=== PATIENT | male | born 1995 | race Caucasian/White ===

== ENCOUNTER → 2019-07-28 15:45 | Outpatient (CLI) | payer BC, SELFPAY | PROVIDERS: PCP Physician Assistant; Visit Provider Physician Assistant | DX: G47.33 Obstructive sleep apnea (adult) (pediatric) (principal); G47.10 Hypersomnia, unspecified; R06.83 Snoring | CPT/HCPCS: G0399 ==

== ENCOUNTER 2020-09-18 09:06 | Emergency (ER) | payer BC, SELFPAY ==
[2020-09-18 09:06] VITALS: BP 144/96; PULSE 86; RESP 20; TEMP 36.8; O2SAT 100; BMI 40.6
--- NOTE | 2020-09-18 09:30 | HMH.EDUTC ---
[facility] Disposition Clinical Impression: Exposure to COVID-19 virus Disposition: Home, Self-Care Condition on Discharge: Good Instructions: DI for Nasal Congestion, DI for COVID-19 (Suspected or Confirmed ), Coronavirus Disease 2019, Preventing the Spread of Coronavirus Discharge Instructions Additional Instructions: *Monitor Temp, Over the counter Motrin or Tylenol as directed/as needed Tylenol every 4 hours and Motrin every 6 hours (as long as your family doctor has told you that you can take it) for fever or pain. and straight to ER if unable to lower temp less than 101.0 after medication given Take allergy medication as prescribed and make sure you are getting adequate Vit C and D Follow up IMMEDIATELY for new or worsening symptoms or no Noticeable improvement over the next 48-72 hours. 911 for difficulty breathing or swallowing You were tested for today for COVID19 your test result should be back in the next 24-48 hours, you may call to the [facility] to see if your test results are back in the next 48 hours [phone] [facility] hours are 9am-9pm You was given a handout with instructions for Self Quarantine and Self isolation for while you wait on test results and what to do if they are positive If you are positive the Health Dept will be contacting you also Referrals: PCP,No [Primary Care Provider] - As needed Forms: Work/School Release Time of Disposition: 09:34 Medical Decision Making - Shravan Inquiry Pt receiving controlled substance: No Shravan was queried for this patient: No Vital Signs: 09/18/20 09:06 Temperature 98.2 F Temperature Source Oral Pulse Rate [Right] 86 Respiratory Rate 20 Blood Pressure [Right Arm] 144/96 H Blood Pressure Mean [Right Arm] 112 02 Sat by Pulse Oximetry 100 Orders (Tests/Meds): ORDERS Category Date Time Status Covid-19 Nasal PCR Sendout P&C Stat Lab 09/18/20 09:08 Ordered [facility] HPI - General Stated complaint: covid test Time Seen by Provider: 09/18/20 09:30 Description of Symptoms (Recalled from Triage Doc. by RN): pt request covid test pt c/o head congestion since wednesday HEENT Symptoms (Recalled from RN notes): No Resp Symptoms (Recalled from RN notes): Yes Skin Symptoms (Recalled from RN notes): No MS Symptoms (Recalled from RN notes): No Functional Status (Recalled from RN notes): wnl - History of Present Illness Provider Complaint: Patient state that he was recently around someone that has recently tested positive for COVID States that he has been having some sinus congestion but no fever or sore throat States that started having runny nose over the weekend and still having clear drainage - Related Data Home Medications Medication Instructions Recorded Confirmed loratadine 10 mg tablet 10 mg PO DAILY 08/22/19 08/22/19 Allergies Allergy/AdvReac Type Severity Reaction Status Date / Time No Known Allergies Allergy Verified 08/22/19 15:57 - Worker's Comp Is this a Worker's Comp case?: No Is this an [employer] Worker's Comp?: No Is this a Deric Worker's Comp?: No [facility] History - Hepatitis A Screen Drug use history?: No High risk sexual behaviors?: No History of sexually transmitted infection?: No Currently employed?: No Childcare worker?: No Do you have indoor plumbing?: Yes Do you have electricity?: Yes Attestation statement:: This patient has been screened for Hepatitis A risk factors. I have reviewed the patient's past medical history: Yes Other Surgeries: Yes: No Previous Surgery - Social History Smoking Status: Never smoker Alcohol Intake: current Alcohol Intake Frequency:: holidays/special occasions only Substance Use Type: denies use Occupational Status: employed Housing: house Household Members: spouse Family Hx:: Hypertension, Hyperlipidemia, Heart Attack ROS Obtained: Yes All systems reviewed & no additional complaints, Yes Systems reviewed as appropriate & no additional complaints - Constitutional Constitutional: Repor
[2020-09-18 09:37] VITALS: BP 144/96; PULSE 86; RESP 20; TEMP 36.8; O2SAT 100
[2020-09-19 10:40] LABS: Covid-19 Nasal PCR Sendout P&C POSITIVE
--- NOTE | 2020-09-19 12:04 | PC.NURSE ---
PATIENT NOTIFIED OF POSITIVE COVID TEST AT THIS TIME
== END 2020-09-18 09:43 | disposition home or self-care (01) ==
PROVIDERS: Emergency Provider Nurse Practitioner
DX: U07.1 COVID-19 (principal)
CPT/HCPCS: 99202; G0463; U0004

== ENCOUNTER → 2020-09-25 16:15 | Outpatient (CLI) | payer BC, SELFPAY ==
--- NOTE | 2020-09-25 16:29 | XR_ITS ---
PROCEDURE: XR CHEST PORTABLE CLINICAL HISTORY: COVID OUTPATIENT Cough, positive Covid19 COMPARISON: No exams were available for comparison FINDINGS: The cardiomediastinal silhouette and pulmonary vascularity are within normal limits. Patchy ground-glass attenuation noted in the right perihilar region and left lower lobe suspicious for Covid19 pneumonia. No acute bony abnormalities. IMPRESSION: Bilateral ground-glass infiltrates suspicious for Covid19 pneumonia Dictated by: Korey Juarez MD 09/26/2020 05:48 Korey Juarez MD in OV 09/26/2020 05:48
[2020-09-25 17:04] LABS: Basophils % 0.7 % (0.1-2.0); Eosinophils # 0.1 K/mm3 (0.0-0.4); Hematocrit 43.6 % (42.0-52.0); Hemoglobin 15.3 g/dL (14.1-18.0); Lymphocytes # 1.3 K/mm3 (0.7-4.5); Mean Corpuscular HGB Conc 35.2 g/dL (31.8-35.4); Mean Corpuscular Hemoglobin 28.1 pg (27.0-31.2); Mean Corpuscular Volume 79.9 fl (80-94); Mean Platelet Volume 7.2 fl (7.4-10.4); Monocytes # 0.3 K/mm3 (0.1-1.0); Monocytes % 4.7 % (1.7-9.3); Neutrophils # 3.6 K/mm3 (1.8-7.8); Neutrophils % 67.5 % (37.0-80.0); Platelet Count 254 K/mm3 (142-424); Red Blood Count 5.46 M/mm3 (4.60-6.20); Red Cell Distribution Width 13.6 % (11.5-17.5); White Blood Count 5.4 K/mm3 (4.8-10.8)
[2020-09-27 09:55] LABS: Covid-19 Nasal PCR Sendout P&C POSITIVE
== END ==
PROVIDERS: PCP Nurse Practitioner Family; Visit Provider Nurse Practitioner Family
DX: U07.1 COVID-19 (principal)
CPT/HCPCS: 36415; 71045; 85025; U0004

== ENCOUNTER 2020-09-29 18:32 | Emergency (ER) | payer BC, SELFPAY ==
[2020-09-29 18:34] VITALS: BP 173/114; PULSE 118; RESP 20; TEMP 36.6; O2SAT 98; BMI 40.6
--- NOTE | 2020-09-29 18:45 | XR_ITS ---
PROCEDURE: XR CHEST PORTABLE CLINICAL HISTORY: SOB; +COVID COMPARISON: CR XR CHEST PORTABLE from 09/25/2020 FINDINGS: The cardiomediastinal silhouette and pulmonary vascularity are within normal limits. There are low lung volumes. There are mild atelectatic changes in the right lung base. Patchy density present in the left lower lobe and may be due to atelectasis and/or infiltrate probably unchanged. IMPRESSION: Hypoexpansion with atelectasis and/or infiltrate in the left lower lobe Dictated by: Korey Juarez MD 09/30/2020 06:24 Korey Juarez MD in OV 09/30/2020 06:24
[2020-09-29 19:11] LABS: ABG Base Excess -3.3 mmol/L (-2.4-2.3); ABG HCO3 20.7 mmhg (22.0-26.0); ABG Oxygen Saturation 98 % (90-100); ABG PCO2 30.5 mmhg (35.0-45.0); ABG PH 7.45 mmol/L (7.35-7.45); ABG PO2 96.1 mmhg (80-100); ABG TCO2 21.7 mmhg (23-27); Allen's Test Y; Oxygen R/A %; Source R/R
--- NOTE | 2020-09-29 19:16 | HMH.EDSOB ---
ED Disposition Clinical Impression: COVID-19 Disposition: Home, Self-Care Condition on Discharge: Good Referrals: Vane Mccurdy PA [Primary Care Provider] - - Critical Care Critical Care Time: No Attestation: On 09/29/20, the high probability of a clinically significant, sudden or life threatening deterioration of the following system(s) required my full and direct attention, intervention and personal management. The time I documented below is in addition to time spent performing reported procedures but includes the following listed in this critical care notation. Medical Decision Making - Medical Records Medical records reviewed: Yes: I reviewed the patient's medical records. - Shravan Inquiry Pt receiving controlled substance: No Vital Signs: 09/29/20 18:34 Temperature 97.8 F Temperature Source Oral Pulse Rate [Left Radial] 118 H Respiratory Rate 20 Blood Pressure [Right Arm] 173/114 H Blood Pressure Mean [Right Arm] 133 Blood Pressure Source [Right Arm] Automatic Cuff Blood Pressure Position [Right Arm] Sitting 02 Sat by Pulse Oximetry 98 Oxygen Delivery Method Room Air - Lab Data Lab results reviewed: Yes: I reviewed the patient's lab results. Lab Results 09/29/20 19:09: Specimen Source R/r, O2 % R/a, ABG pH 7.45, ABG pCO2 30.5 L, ABG pO2 96.1, ABG HCO3 20.7 L, ABG Total CO2 21.7 L, ABG O2 Saturation 98, ABG Base Excess -3.3 L, Korey Test Y Orders (Tests/Meds): ORDERS Category Date Time Status XR chest portable Stat Exams 09/29/20 18:45 Taken Basic Metabolic Panel Stat Lab 09/29/20 18:46 Ordered Complete Blood Count Auto Diff Stat Lab 09/29/20 18:45 Ordered Arterial Blood Gas Stat RT 09/29/20 18:45 Ordered - Radiology Data #1 Image(s): Chest Image Reviewed: Yes I reviewed the patient's radiology results Preliminary Findings: Normal/NAD Resp/SOB HPI - General Chief Complaint: Shortness of Breath/Dyspnea Stated Complaint: covid pos , weakness,double pnuemon Time Seen by Provider: 09/29/20 18:35 Mode of Arrival: Ambulatory Limitations: No Limitations Description of Symptoms (Recalled from ER Triage Doc. by RN): pt states that he has tested positive for covid a week and half ago and the last few days he has been feeling soa more in the morning. He was given the covid cocktail but he isnt sure if the PNA is getting better or worse - History of Present Illness This is a 24-year-old male that presents with progressive shortness of breath. Patient tested positive for Covid approximately 1-1/2 weeks ago. Patient reported he had bilateral infiltrates and was treated with antibiotics and steroids. Patient reports shortness of breath worse in the morning. Patient denies significant shortness of breath at this time. No chest pain orthopnea. No further fever or chills. - Related Data Home Medications Medication Instructions Recorded Confirmed loratadine 10 mg tablet 10 mg PO DAILY 08/22/19 08/22/19 Allergies Allergy/AdvReac Type Severity Reaction Status Date / Time No Known Allergies Allergy Verified 08/22/19 15:57 [facility] History - Hepatitis A Screen Drug use history?: No High risk sexual behaviors?: No History of sexually transmitted infection?: No Currently employed?: No Childcare worker?: No Do you have indoor plumbing?: Yes Do you have electricity?: Yes Attestation statement:: This patient has been screened for Hepatitis A risk factors. I have reviewed the patient's past medical history: Yes Other Surgeries: Yes: No Previous Surgery - Social History Smoking Status: Never smoker Alcohol Intake: current Alcohol Intake Frequency:: holidays/special occasions only Substance Use Type: denies use Occupational Status: employed Housing: house Household Members: spouse Family Hx:: Hypertension, Hyperlipidemia, Heart Attack ROS Obtained: Yes All systems reviewed & no additional complaints Physical Exam - General General appear
[2020-09-29 19:34] VITALS: BP 139/94; PULSE 103; RESP 16; TEMP 36.6; O2SAT 98
== END 2020-09-29 19:36 | disposition home or self-care (01) ==
PROVIDERS: Emergency Provider Emergency Medicine; PCP Physician Assistant
DX: U07.1 COVID-19 (principal)
CPT/HCPCS: 71045; 82803; 96372; 99282

== ENCOUNTER → 2025-03-12 07:05 | Outpatient (CLI) | payer BC, SELFPAY ==
--- OUTSIDE RECORDS SUMMARY | 2025-02-02 10:15 | XMS_ITS ---
[facility] [address] [place] [id number] Care Team Providers Care Care Taker Name Role Phone Dez Limon Primary Care Provider Allergies No Known Allergies Results Component Value Reference Range Notes CBC Venipuncture (in house) Reviewed date:02/06/2025 10:23:12 AM Interpretation: Performing Lab: Notes/Report: wbc 10.5 3.5 - 10 lymph 23.5% 15 - 50 mid 6.3% 2 - 15 gran 70.2% 35 - 80 rbc 5.29 3.5 - 5.5 hgb 14.5 11.5 - 16.5 hct 42.8 35 - 55 mcv 80.9 75 - 100 mch 27.4 25 - 35 mchc 33.9 31 - 38 platlet 289 100 - 400 P-Basic Metabolic Panel (BMP ) Reviewed date:02/05/2025 02:18:57 PM Interpretation:Normal Performing Lab: Notes/Report: Test performed by [facility], [address] , [address], [place] [address] Ricardo Welsh MD, Perinatal Technician CLIA: [id number] Sodium 141 135-145 mmol/L Potassium 4.4 3.5-5.3 mmol/L Chloride 100 97-108 mmol/L CO2 26 22-32 mmol/L Glucose 89 65-99 mg/dL BUN 16 6-20 mg/dL Creatinine 0.83 0.70-1.30 mg/dL Calcium 9.6 8.6-10.4 mg/dL eGFR by Creatinine 121 >59 mL/min/1.73m2 P-Lipid Panel Reviewed date:02/05/2025 02:18:57 PM Interpretation:chol 230, trigs 240, hdl 34, chol/hdl 6.76, non-hdl 196, ldl 148 Performing Lab: Notes/Report: Test performed by [facility], [address] , [address], [place] [address] Ricardo Welsh MD, Perinatal Technician CLIA: [id number] Cholesterol 230 <200 mg/dL Triglycerides 240 <150 mg/dL HDL Cholesterol 34 >39 mg/dL Cholesterol / HDL Ratio 6.76 0.00-4.99 Ratio Non-HDL Cholesterol 196 <130 mg/dL LDL Cholesterol (Calculation) 148 <130 mg/dL LDL Cholesterol Levels* Less than 100 mg/dL Optimal 100 to 129 mg/dL Near Optimal/ Above Optimal 130 to 159 mg/dL Borderline High 160 to 189 mg/dL High 190 mg/dL and above Very High * Categories as recommended by the 2004 ATPIII guidelines LDL/HDL Ratio 4.4 <3.3 Ratio LDL Cholesterol Patient History Test Date: 02/02/2025 LDL Results: 148 Units: mg/dL % Change: - P-TSH reflex to FT4 Reviewed date:02/05/2025 02:18:58 PM Interpretation:Normal Performing Lab: Notes/Report: Test performed by [employer] [facility] , [address], [place] [address] Ricardo Welsh MD, Perinatal Technician IA: [id number] TSH reflex to FT4 2.70 0.43-5.25 mU/L REASON FOR VISIT general check up Social History Tobacco Use: Social History Observation Description Date Details (start date - stop date) Never Smoker NA - NA CURRENT TOBACCO USE: Question Answer Notes Are you a: never smoker Problems Problem Type SNOMED Code ICD Code Onset Dates Problem Status W/U Status Risk Notes Problem Morbid obesity (260093540) Morbid obesity (E66.01) Active confirmed Problem Allergic rhinitis (36237332) Allergic rhinitis, unspecified seasonality, unspecified trigger (J30.9) Active confirmed Vital Signs Blood pressure systolic 140 mm Hg 02/03/20 25 Blood pressure diastolic 96 mm Hg 025 Heart Rate 108 /min 02/02/2025 Height 69 in 02/02/2025 Weight 306 lbs 02/02/2025 BMI 45.18 kg/m2 02/02/2025 Encounters Encounter Location Date Provider Diagnosis [facility] [address] [place], [place] [id number] 02/02/2025 Dez Sumner Snoring R06.83 ; Elevated blood pressure reading R03.0 ; Morbid obesity E66.01 ; Screening, lipid Z13.220 and Allergic rhinitis, unspecified seasonality, unspecified trigger J30.9 Assessments Encounter Date Diagnosis (ICD Code) Assessment Notes Treatment Notes Treatment Clinical Notes Section Notes 02/02/2025 Snoring (ICD-10 - R06.83) 02/02/2025 Elevated blood pressure reading (ICD-10 - R03.0) 02/02/2025 Morbid obesity (ICD-10 - E66.01) 02/02/2025 Screening, lipid (ICD-10 - Z13.220) 02/02/2025 Allergic rhinitis, unspecified seasonality, unspecified trigger (ICD-10 - J30.9) OTC antihistamine of choice Plan Of Treatment Treatment Notes Assessment Notes Allergic rhinitis, unspecifi ed seasonality, unspecified trigger OTC antihistamine of choice Pending Test Test Name Order Date sleep study 02/02/2025 Next Appt Details Follow Up: 3 or 4 Weeks, Thompson son: Provider Name:Dez Riley ry, 03/16/2025 10:15:00 AM, [address], [address], [place], [id number], Progress Notes * GRACE LUNADOB:[birth year] (29 yo M)Acc No.[id number]:02/02/2025 Progress Notes Patient: GRACE OSBORNE Provider: Florian Limon M.D. :1995 A ge:29 Y S ex:Male Date:02/02/2025 Address:[facility] [place], [facility] Subjective: * Chief Complaints: * 1 . General check up. * HPI: H PI: 29 year old male presents with c/o Patient is here today for?Pt here to talk about possible sleep apnea. Pt states that his complains about his snoring?. * ROS: A LLERGY: Runny nose y es, c lear discharge. D ERMATOLOGY: no R sofya. n o H dmitry. G ASTROENTEROLOGY: no N ausea. n o V omiting. U ROLOGY: no D ifficulty urinating. n o B lood in urine. * Medical History: A llergic rhinitis, Obesity. * Surgical History: D enies Past Surgical History. * Hospitalization/Major Diagno stic Procedure: O D'ed on allergy medication 2010. * Family History: F ather: alive, diagnosed with Hypertension. M other: alive, diagnosed with Hypertension.?Siblings: alive. * Social History: C URRENT TOBACCO USE A re you a: n ever smoker. * Medications: D iscontinued ROBITUSSIN COUGH & COLD CF , Discontinued ALBUTEROL HFA INHALER 200 METERED DOSES/ 8.5GM 2 INHALATIONS QID AND Q2H PRN , Discontinued Cefdinir 300 MG Capsule 1 cap(s) orally every 12 hours , Discontinued Promethazine-DM 6.25-15 MG/5ML Syrup 5 ml orally every 6 hours prn , Medication List reviewed and reconciled with the patient * Allergies: N .K.D.A. Objective: * Vitals: W t: 306, Temp: 97.9, BP: 140/96, HR: 108, Nurse: luis, Ht: 69, BMI:45.18. * Examination: G eneral Examination: General Appearance: N AD. O ral cavity: n o lesions, mucosa moist and WNL, no erythema. H eart: R SR. L ungs: c lear to auscultation.?Neurologic Exam: I ntact, gait normal. S kin: n ormal, no rash. P eripheral pulses: n ormal (2+) bilaterally. E xtremities: n o leg edema. Assessment: * Assessment: 1. S noring - R06.83 (Primary) 2 . E levated blood pressure reading - R03.0? 3. M orbid obesity - E66.01 4 . S creening, lipid - Z13.220 5 . A llergic rhinitis, unspecified seasonality, unspecified trigger - J30.9? Plan: * Treatment: 2.?Elevated blood pressure reading?LAB: P-Basic Metabolic Panel (BMP) (Collection Date & Time - 02/02/2025 01:31 PM)?Normal* Value Reference Range B UN 16 6-20 - mg/dL * C alcium 9.6 8.6-10.4 - mg/dL * C hloride 100 97-108 - mmol/L * C O2 26 22-32 - mmol/L * C reatinine 0.83 0.70-1.30 - mg/dL * G lucose 89 65-99 - mg/dL * P otassium 4.4 3.5-5.3 - mmol/L * S odium 141 135-145 - mmol/L * e GFR by Creatinine 121 >59 - mL/min/1.73m2 * Dana Figueroa 02/05/2025 02:18 :49 PM EDT > See phone encounter ?LAB: P-TSH reflex to FT4 (Collection Date & Time - 02/02/2025 01:31 PM)? Normal* Value Reference Range T SH reflex to FT4 2.70 0.43-5.25 - mU/L * Dana Figueroa 02/05/2025 02:18 :49 PM EDT > See phone encounter ?LAB: CBC Venipuncture (in house) (Collection Date & Time - 02/02/2025)* Value Reference Range w bc 10.5 3.5 - 10 * l ymph 23.5% 15 - 50 * m id 6.3% 2 - 15 * g ran 70.2% 35 - 80 * r bc 5.29 3.5 - 5.5 * h gb 14.5 11.5 - 16.5 * h ct 42.8 35 - 55 * m cv 80.9 75 - 100 * m ch 27.4 25 - 35 * m chc 33.9 31 - 38 * p latlet 289 100 - 400 * Yaa Wiggins 02/05/2025 05:00:2 6 PM EDT >Nadia Mena 02/06/2025 10:23:04 AM EDT > see TE ?Imaging: sleep study* Sandi Philip 02/05/2025 10:33 :59 AM EDT > faxed to [facility] March 3.?Morbid obesity?LAB: P-TSH reflex to FT4 (Collection Date & Time - 02/02/2025 01:31 PM)? Normal* Value Reference Range T SH reflex to FT4 2.70 0.43-5.25 - mU/L * Dana Figueroa 02/05/2025 02:18 :49 PM EDT > See phone encounter ?Imaging: sleep study* Sandi Philip 02/05/2025 10:33 :59 AM EDT > faxed to [facility] March 4.?Screening, lipid?LAB: P-Lipid Panel (Collection Date & Time - 02/02/2025 01:31 PM)?chol 230, trigs 240, hdl 34, chol/hdl 6.76, non-hdl 196, ldl 148* Value Reference Range C holesterol / HDL Ratio 6.76 H 0.00-4.99 - Ratio * C holesterol 230 H <200 - mg/dL * H DL Cholesterol 34 L >39 - mg/dL * L DL Cholesterol (Calculation) 148 H <130 - mg/d L * L DL/HDL Ratio 4.4 H <3.3 - Ratio * N on-HDL Cholesterol 196 H <130 - mg/dL * T riglycerides 240 H <150 - mg/dL * Dana Figueroa 02/05/2025 02:18 :49 PM EDT > See phone encounter 5.?Allergic rhinitis, unspecified seasonality, unspecified trigger? Notes: OTC antihistamine of choice?? * Procedure Codes: 8 5025 CBC WITH AUTO DIFF, G8950 PREHTN/HTN BP DOC INDCD F/U DOC, G8753 MOST RECENT SYSTOLIC BP >= 140MM HG, G8755 MOST RECENT DIASTOLIC BP >= 90MM HG, 1036F TOBACCO NON-USER * Follow Up: 3 or 4 Weeks * Images: Billing Information: * Visit Code: 57424 Office Visit, New Pt., Level 4. * Procedure Codes: 31537 CBC WITH AUTO DIFF. G8950 PREHTN/HTN BP DOC INDCD F/U DOC. G8753 MOST RECENT SYSTOLIC BP >= 140MM HG. G8755 MOST RECENT DIASTOLIC BP >= 90MM HG. 1036F TOBACCO NON-USER. * Electronic signature of Kailey Limon MD on 03/14/2025 at 07:07 AM EDT Sign off status: Pending * Provider: Florian Limon M.D. Date: 0 02/02/2025 Generated for Hay rich/Bennett/Allisonitting on: 0 03/14/2025 07:07 AM EDT History and Physical Notes * HPI (History of Present Illness) Category Sub-Category Detail Notes Category Not es HPI Patient is here today for Pt her e to talk about possible sleep apnea. Pt states that his complains about his snoring Examination Category Sub-Category Detail Notes Category Not es General Examination Heart: RSR Lungs: clear to auscultatio n Extremities: no leg edema General Appearance: NAD Skin: normal, no rash Neurologic Exam: Intact, gait normal Oral cavity: no lesions, mucosa m oist and WNL, no erythema Peripheral pulses: normal (2+) bilatera lly
--- OUTSIDE RECORDS SUMMARY | 2025-03-14 07:07 | XMS_ITS | Patient Health Record ---
[facility] [address] [place] [id number] Care Team Providers Care Promotions Team Leader Name Role Phone BraxtonSusieDez Primary Care Provider [phone] Allergies No Known Allergies Results Component Value [...] Interpretation:Normal Performing Lab: Notes/Report: Test performed by [email or web address] [employer] [address] [place] [address] , [address], [place] [address] Ricardo Welsh MD, Charge Master Coordinator CLIA: [id number] Sodium 141 135-145 mmol/L Potassium 4.4 3.5-5.3 mmol/L Chloride 100 97-108 mmol/L CO2 26 22-32 mmol/L Glucose 89 65-99 mg/dL BUN 16 6-20 mg/dL Creatinine 0.83 0.70-1.30 mg/dL Calcium 9.6 8.6-10.4 mg/dL eGFR by Creatinine 121 >59 mL/min/1.73m2 P-Lipid Panel Reviewed date:02/05/2025 02:18:57 PM Interpretation:chol 230, trigs 240, hdl 34, chol/hdl 6.76, non-hdl 196, ldl 148 Performing Lab: Notes/Report: Test performed by [facility] [address] [place] [address] , [address], [place] [address] Ricardo Welsh MD, Charge Master Coordinator CLIA: [id number] Cholesterol 230 <200 mg/dL Triglycerides 240 <150 [...] Interpretation:Normal Performing Lab: Notes/Report: Test performed by [facility] [address] [facility] , [address], [place] [address] Ricardo Welsh MD, Charge Master Coordinator CLIA: [id number] TSH reflex to FT4 2.70 0.43-5.25 mU/L Reason For Referral No Information Immunizations Vaccine Route Administration Date Status Comme nts Fluzone PF Quad (6-35 months) Unknown 08/24/2018 Admini stered Hepatitis A (adult) Unknown 08/24/2018 Administered MMR Unknown 01/21/1996 Administered MMR Unknown 11/07/1998 Administered Varivax Unknown 11/16/1997 Administered Problems Problem Type SNOMED Code ICD Code Onset Dates Problem Status W/U Status Risk Notes Problem Morbid obesity (671392932) Morbid obesity (E66.01) Active confirmed Problem Obesity, Class III, BMI 40-49.9 (morbid obesity) (E66.01) Active confirmed Problem Allergic rhinitis, unspecified seasonality, unspecified trigger (J30.9) Active confirmed Vital Signs Heart Rate 108 /min 02/02/2025 Blood pressure diastolic 96 mm Hg 02/02/2025 Height 69 in 02/02/2025 Blood pressure systolic 140 mm Hg 02/02/2025 Weight 306 lbs 02/02/2025 BMI 45.18 kg/m2 02/02/2025 Encounters Encounter Location Date Provider Diagnosis [facility] [address] [facility] [address] [place] [id number] 02/02/2025 Dez Llano Snoring R06.83 ; Elevated blood pressure reading R03.0 ; Morbid obesity E66.01 ; Screening, lipid Z13.220 and Allergic rhinitis, unspecified seasonality, unspecified trigger J30.9 [facility] [address] [facility] [address] [place] [employer] [id number] 02/05/2025 Dez Llano Assessments Encounter Date Diagnosis (ICD Code) Assessment Notes Treatment Notes Treatment Clinical Notes Section Notes 02/02/2025 Snoring (ICD-10 - R06.83) 02/02/2025 Elevated blood pressure reading (ICD-10 - R03.0) 02/02/2025 Morbid obesity (ICD-10 - E66.01) 02/02/2025 Screening, lipid (ICD-10 - Z13.220) 02/02/2025 Allergic rhinitis, unspecified seasonality, unspecified trigger (ICD-10 - J30.9) OTC antihistamine of choice Plan Of Treatment Pending Test Test Name Order Date sleep study 02/02/2025 Next Appt Details Provider Name:Dez Riley ry, 03/16/2025 10:15:00 AM, [address], [address], [place], [place], [id number], Insurance Providers Payer Name Payer Address Payer Phone Subscriber Number Group Number Insured Name Patient Relationship to Insured Coverage Start Date Coverage End Date [employer] [id number] [place] [address] [id number] GRACE LUNA Self - patient is the insured Medical (General) History Medical History History ICD Code Allergic Rhinitis Obesity Surgical History Surgery Date(Month/Year) Hospitalization History Reason Date(Month/Year) OD'ed on allergy medication 2010
== END ==
LOC: SL 03-14 07:06
PROVIDERS: PCP Family Medicine; Visit Provider Family Medicine
DX: E66.01 Morbid (severe) obesity due to excess calories; R03.0 Elevated blood-pressure reading, without diagnosis of hypertension; G47.33 Obstructive sleep apnea (adult) (pediatric); G47.36 Sleep related hypoventilation in conditions classified elsewhere
CPT/HCPCS: G0399